=== PATIENT | female | born 1975 | race Caucasian/White ===

== ENCOUNTER 2018-02-06 12:14 | Emergency (ER) | payer MEDICAID, OTHER ==
[2018-02-06 12:27] VITALS: BMI 28.3
[2018-02-06 12:29] VITALS: BP 121/82; PULSE 76; RESP 18; TEMP 97.6; O2SAT 100
--- NOTE | 2018-02-06 12:39 | C.PDOC ---
History Of Present Illness 42 yo female comes in for evaluation of Left ankle pain gradually developed for past few hours after sustained twisting injury. Pt sts, pain is localized over left ankle, non-radiating, worse with weight bearing. Otherwise, pt denies head injury, neck pain, denies obvious deformity, weakness, sensory or vascular deficits to left leg/foot. Ambulate to ED. Time Seen by Provider: 02/06/18 12:27 Chief Complaint (Nursing): Lower Extremity Problem/Injury History Per: Patient Past Medical History Reviewed: Historical Data, Nursing Documentation, Vital Signs Vital Signs: Last Vital Signs Temp 97.6 F 02/06/18 12:27 Pulse 76 02/06/18 12:27 Resp 18 02/06/18 12:27 BP 121/82 02/06/18 12:27 Pulse Ox 100 02/06/18 12:27 - Medical History PMH: No Chronic Diseases - [facility] Procedures EPISIOTOMY (03/22/13) Family History: States: No Known Family Hx - Social History Hx Tobacco Use: No Hx Alcohol Use: No Hx Substance Use: No - Immunization History Hx Tetanus Toxoid Vaccination: No Hx Influenza Vaccination: No Hx Pneumococcal Vaccination: No Review Of Systems Except As Marked, All Systems Reviewed And Found Negative. Musculoskeletal: Positive for: Foot Pain, Other (Left ankle pain). Negative for: Neck Pain Skin: Negative for: Bruising Neurological: Negative for: Weakness, Numbness Physical Exam - Physical Exam Appears: Well, Non-toxic, No Acute Distress Skin: Normal Color, Warm, No Ecchymosis Head: Atraumatic, Normacephalic Eye(s): bilateral: PERRL Extremity: Normal ROM (of Left ankle/foot, no neurovascula deficits distally to injury.), Tenderness (mild over anterior sapect left ankle, mild over lateral malleolus), No Calf Tenderness, Capillary Refill (less than 2sec to left foot), No Deformity, No Swelling Pulses: Left Dorsalis Pedis: Normal DTR: Ankle (L): 2+ Neurological/Psych: Oriented x3, Normal Speech, Normal Motor, Normal Sensation, Normal Reflexes ED Course And Treatment O2 Sat by Pulse Oximetry: 100 - Other Rad Left ankle/foot X-Ray: Interpreted by Me, Viewed By Me Interpretation: (-) acute fx or dislocation Progress Note: On re-eval, pt is afebrile, hemodynamicaly stable. non-toxic. Ambulatory in ED. Left LE: mild tenderness over anterior aspect left ankle,lateral malleolus. No palpable deformity, no edema, no ecchymoses. FAROM, no neurovsacular deficits. Imaging review (-) acute fx or dislocation. Masoud wrap/air cast applied to left ankle. Pt advised and ref. to f/u with Podiatry Clinic on friday. Return if any new changes. Disposition Counseled Patient/Family Regarding: Studies Performed, Diagnosis, Need For Followup, Rx Given - Disposition Referrals: [facility] [Outside] Disposition: HOME/ ROUTINE Disposition Time: 13:04 Condition: STABLE Additional Instructions: RICE- rest, ice, compression, elevation Ibuprofen as need for pain Avoid prolong walking Follow up with Podiatry Clinic on Friday from 12 PM- 3PM for re-evaluation as need Return to Ed if any new changes. Prescriptions: Ibuprofen [Motrin Tab] 600 mg PO BID #20 tab Instructions: Ankle Sprain Forms: Pay with a Tweet (Croatian) - Clinical Impression Clinical Impression: Ankle sprain
--- NOTE | 2018-02-06 13:25 | RAD ---
Date of service: 02/06/2018 PROCEDURE: Left Ankle Radiographs. HISTORY: Injury. COMPARISON: Comparison made with concurrent radiographs of the left foot FINDINGS: BONES: There has been ORIF distal left tibia. In situ fixation plate is attached to the lateral aspect of the distal left tibial diaphysis by multiple threaded screws. Hardware intact without evidence of loosening or infection. No evidence of acute displaced fracture nor posterior and tiny plantar calcaneal enthesophytes. JOINTS: Normal. No osteoarthritis. Ankle mortise maintained. Talar dome intact SOFT TISSUES: There appears to be mild moderate pretibial soft tissue swelling involving proximal soft tissues. OTHER FINDINGS: None. IMPRESSION: ORIF distal left tibia. In situ fixation plate is attached to the lateral aspect of the distal left tibial diaphysis by multiple threaded screws. No evidence of hardware failure. No evidence of acute displaced fracture nor dislocation. Mild moderate pretibial soft tissue swelling involving proximal soft tissues.
--- NOTE | 2018-02-06 13:27 | RAD ---
Date of service: 02/06/2018 PROCEDURE: Left Foot Radiographs. HISTORY: injury COMPARISON: Correlation made with concurrent radiographs of the left ankle FINDINGS: BONES: No evidence of acute displaced fracture nor dislocation. Osseous structures appear intact. Small posterior and tiny plantar calcaneal enthesophytes are present. Again seen is the inferior aspect of a tibial fixation plate. Please refer to ankle radiographs and corresponding report for additional details. JOINTS: Normal. SOFT TISSUES: Normal. OTHER FINDINGS: None. IMPRESSION: No evidence of acute displaced fracture nor dislocation. S.
== END 2018-02-06 13:19 | disposition home or self-care (01) ==
LOC: C.ER 12:14
DX: S93.402A Sprain of unspecified ligament of left ankle, initial encounter (principal); X50.1XXA Overexertion from prolonged static or awkward postures, initial encounter; Y93.9 Activity, unspecified; Y92.9 Unspecified place or not applicable